=== PATIENT | female | born 1950 | race Caucasian/White ===

== ENCOUNTER 2020-09-23 12:53 | Outpatient (CLI) | payer MEDICARE | END 2020-09-23 12:54 | disposition home or self-care (01) | LOC: BICMAMMO 12:53 | PROVIDERS: ATTEND Family Medicine | DX: Z12.31 Encounter for screening mammogram for malignant neoplasm of breast (principal) | CPT/HCPCS: 77063; 77067 ==

== ENCOUNTER 2020-12-16 01:36 | Emergency (ER) | payer MEDICARE ==
[2020-12-16 02:37] LABS: Hemoglobin 15.6 g/dL (12.0-16.0); Mean Corpuscular HGB CONC 32.9 g/dL (32.0-36.0); Mean Corpuscular Hemoglobin 30.7 pg (27.0-31.0); Mean Corpuscular Volume 93.2 fL (78.0-98.0); Mean Platelet Volume 7.7 fL (7.4-10.4); Platelet Count 326 thou/uL (130-400); RBC Distribution Width 12.6 % (11.5-14.5); White Blood Cell (WBC) Count 15.6 thou/uL (4.8-10.8)
[2020-12-16 02:41] LABS: ALT (SGPT) 21 U/L (8-55); AST (SGOT) 13 U/L (5-34); Alkaline Phosphatase 74 U/L (40-110); Anion Gap 13 mmol/L (10-20); BUN (Urea Nitrogen) 26 mg/dL (9.8-20.1); Bilirubin, Total 0.4 mg/dL (0.2-1.2); Calc. Creatinine Clearance 0 mL/min (70-130); Calcium 9.3 mg/dL (7.8-10.44); Carbon Dioxide 26 mmol/L (23-31); Chloride 98 mmol/L (98-107); Globulin 3.1 g/dL (2.4-3.5); Glucose 110 mg/dL (80-115); Potassium 3.7 mmol/L (3.5-5.1); Protein, Total 7.1 g/dL (5.8-8.1); Sodium 133 mmol/L (136-145)
[2020-12-16 02:57] LABS: Band 1 % (5-11); Lymphocytes 48 % (21-51); MDiff Complete? YES; Monocytes 6 % (0-10); Neutrophil 45 % (42-75); Platelet Morphology Comment Appears Adequate; RBC Morphology Normal
[2020-12-16] MEDS ORDERED: Metoprolol Tartrate 5 MG/5 ML VIAL ONE (03:53)
== END 2020-12-16 05:39 | disposition home or self-care (01) ==
LOC: ERS 01:36
DX: I48.91 Unspecified atrial fibrillation (principal); M54.12 Radiculopathy, cervical region; E78.5 Hyperlipidemia, unspecified; I10 Essential (primary) hypertension; Z79.899 Other long term (current) drug therapy
CPT/HCPCS: 36415; 80053; 84484; 85025; 93005

== ENCOUNTER 2021-05-04 16:28 | Outpatient (CLI) | payer MEDICARE | END 2021-05-04 16:29 | disposition home or self-care (01) | LOC: RAD 16:28 | PROVIDERS: ATTEND Internal Medicine | DX: R05.9 Cough, unspecified (principal) | CPT/HCPCS: 71046; U0003; U0005 ==

== ENCOUNTER 2021-05-14 12:23 | Emergency (ER) | payer MEDICARE ==
[2021-05-14 12:52] LABS: #Basophils 0.1 thou/uL (0.0-0.2); #Eosinphils 0.2 thou/uL (0.0-0.7); #Lymphocytes 3.4 thou/uL (1.20-3.40); #Monocytes 1.7 thou/uL (0.11-0.59); #Neutrophils 11.4 thou/uL (1.40-6.50); %Basophils 0.3 % (0.0-1.0); %Eosinophils 1.4 % (0.0-10.0); %Lymphocytes 20.1 % (21.0-51.0); %Monocytes 10.2 % (0.0-10.0); Hemoglobin 14.1 g/dL (12.0-16.0); Mean Corpuscular HGB CONC 33.2 g/dL (32.0-36.0); Mean Corpuscular Hemoglobin 30.8 pg (27.0-31.0); Mean Corpuscular Volume 92.8 fL (78.0-98.0); Mean Platelet Volume 6.8 fL (7.4-10.4); Platelet Count 334 thou/uL (130-400); RBC Distribution Width 12.7 % (11.5-14.5); Red Blood Cell (RBC) Count 4.59 mill/uL (4.20-5.40); White Blood Cell (WBC) Count 16.8 thou/uL (4.8-10.8)
[2021-05-14 13:03] LABS: PTT 27.7 sec (22.9-36.1); Prothrombin Time 13.6 sec (12.0-14.7)
[2021-05-14 13:15] LABS: ALT (SGPT) 19 U/L (8-55); AST (SGOT) 13 U/L (5-34); Albumin 3.7 g/dL (3.4-4.8); Alkaline Phosphatase 71 U/L (40-110); Anion Gap 12 mmol/L (10-20); BUN (Urea Nitrogen) 25 mg/dL (9.8-20.1); Bilirubin, Total 0.5 mg/dL (0.2-1.2); Calc. Creatinine Clearance 0 mL/min (70-130); Carbon Dioxide 30 mmol/L (23-31); Chloride 100 mmol/L (98-107); Globulin 2.6 g/dL (2.4-3.5); Glucose 109 mg/dL (80-115); Potassium 3.7 mmol/L (3.5-5.1); Protein, Total 6.3 g/dL (5.8-8.1); Sodium 138 mmol/L (136-145)
[2021-05-14 15:28] LABS: Bilirubin Negative (Negative); Blood, Urine Negative (Negative); Clarity Clear (Clear); Glucose, Urine (Dipstick) Normal (Negative); Ketone, Urine Negative (Negative); Leukocyte Negative Leu/uL (Negative); Nitrite Negative (Negative); Protein, Urine (Dipstick) Negative (Neg-Trace); Specific Gravity, Urine 1.022 (1.002-1.036)
== END 2021-05-14 16:33 | disposition home or self-care (01) ==
LOC: ERS 12:23
DX: J20.9 Acute bronchitis, unspecified (principal); R06.02 Shortness of breath; J45.909 Unspecified asthma, uncomplicated; I48.91 Unspecified atrial fibrillation
CPT/HCPCS: 36415; 71045; 80053; 81003; 83605; 84484; 85025; 85379; 85610; 85730; 87040; 87086; 93005; 94760

== ENCOUNTER 2021-09-25 12:51 | Outpatient (CLI) | payer MEDICARE | END 2021-09-25 12:52 | disposition home or self-care (01) | LOC: BICMAMMO 12:51 | PROVIDERS: ATTEND Family Medicine | DX: Z12.31 Encounter for screening mammogram for malignant neoplasm of breast (principal) | CPT/HCPCS: 77063; 77067 ==

== ENCOUNTER 2022-05-21 11:38 | Outpatient (CLI) | payer MEDICARE | END 2022-05-21 11:39 | disposition home or self-care (01) | LOC: BICRAD 11:38 | PROVIDERS: ATTEND Nurse Practitioner Family | DX: G93.31 Postviral fatigue syndrome (principal) | CPT/HCPCS: 36415; 71046; 80053; 83880; 85025 ==

== ENCOUNTER 2022-06-28 12:58 | Outpatient (CLI) | payer MEDICARE | END 2022-06-28 12:59 | disposition home or self-care (01) | LOC: BICMAMMO 12:58 | PROVIDERS: ATTEND Family Medicine | DX: M81.0 Age-related osteoporosis without current pathological fracture (principal); M85.851 Other specified disorders of bone density and structure, right thigh; M85.852 Other specified disorders of bone density and structure, left thigh | CPT/HCPCS: 77080 ==

== ENCOUNTER 2022-10-21 11:55 | Outpatient (CLI) | payer MEDICARE | END 2022-10-21 11:56 | disposition home or self-care (01) | LOC: BICMAMMO 11:55 | PROVIDERS: ATTEND Family Medicine | DX: Z12.31 Encounter for screening mammogram for malignant neoplasm of breast (principal) | CPT/HCPCS: 77063; 77067 ==

== ENCOUNTER 2023-11-22 13:04 | Outpatient (CLI) | payer MEDICARE | END 2023-11-22 13:05 | disposition home or self-care (01) | LOC: BICMAMMO 13:04 | PROVIDERS: ATTEND Family Medicine | DX: Z12.31 Encounter for screening mammogram for malignant neoplasm of breast (principal); N63.14 Unspecified lump in the right breast, lower inner quadrant | CPT/HCPCS: 77063; 77067 ==

== ENCOUNTER 2023-11-24 14:08 | Outpatient (CLI) | payer MEDICARE | END 2023-11-24 14:09 | disposition home or self-care (01) | LOC: BICMAMMO 14:08 | PROVIDERS: ATTEND Family Medicine | DX: N63.14 Unspecified lump in the right breast, lower inner quadrant (principal) | CPT/HCPCS: 76642; 77065; G0279 ==